=== PATIENT | female | born 1980 | race Caucasian/White ===

== ENCOUNTER 2017-08-19 09:20 | Emergency (ER) | payer BC ==
[2017-08-19 11:13] VITALS: BP 108/70
--- NOTE | 2017-08-27 15:04 | ED ---
Throat Pain/Nasal Congestion - HPI Summary HPI Summary: 36 yr old with right eye irritation for a day. No contact lens use. Increased watering and crusty. No other complaints. - History of Current Complaint Chief Complaint: UCEye Time Seen by Provider: 08/19/17 10:40 - Allergies/Home Medications Allergies/Adverse Reactions: Allergies Allergy/AdvReac Type Severity Reaction Status Date / Time No Known Allergies Allergy Verified 08/27/17 14:18 Home Medications: Home Medications Acetaminophen/Diphenhydramine [Tylenol Pm Ex-Strength Caplet] 1 each PO BEDTIME 08/19/17 [History Confirmed 08/19/17] PMH/Surg Hx/FS Hx/Imm Hx Infectious Disease History: No Infectious Disease History: Denies: Traveled Outside the [place] in Last 30 Days - Social History Alcohol Use: None Substance Use Type: Reports: None Smoking Status (MU): Never Smoked Tobacco Review of Systems Constitutional: Negative Positive: Drainage, Other - irritation All Other Systems Reviewed And Are Negative: Yes Physical Exam Triage Information Reviewed: Yes Vital Signs On Initial Exam: Initial Vitals Temp Pulse Resp BP Pulse Ox 98.6 F 63 16 108/70 100 08/19/17 11:08 08/19/17 11:08 08/19/17 11:08 08/19/17 11:08 08/19/17 11:08 Vital Signs Reviewed: Yes Appearance: Positive: Well-Appearing, No Pain Distress, Well-Nourished Skin: Positive: Warm, Skin Color Reflects Adequate Perfusion Eyes: Positive: EOMI, JEREMY, Conjunctiva Inflammed - right greater than left ENT: Positive: Normal ENT inspection Respiratory/Lung Sounds: Positive: Clear to Auscultation Cardiovascular: Positive: RRR Abdomen Description: Negative: Distended Musculoskeletal: Positive: Normal, Strength/ROM Intact Neurological: Positive: Sensory/Motor Intact, Alert, Oriented to Person Place, Time, CN Intact II-III Psychiatric: Positive: Normal - Magno Coma Scale Best Eye Response: 4 - Spontaneous Best Motor Response: 6 - Obeys Commands Best Verbal Response: 5 - Oriented Coma Scale Total: 15 Diagnostics - Vital Signs Vital Signs Temp Pulse Resp BP Pulse Ox 08/19/17 11:08 98.6 F 63 16 108/70 100 - Laboratory Lab Statement: Any lab studies that have been ordered have been reviewed, and results considered in the medical decision making process. EENT Course/Dx - Course Course Of Treatment: 36 yr old female with conjunctivitis. Sulfa drops. FU PMD - Diagnoses Provider Diagnoses: Conjunctivitis Discharge - Discharge Plan Condition: Good Disposition: HOME Prescriptions: Sulfacetamide 10 % OPTH.APURVA* [Sulamyd 10% Opth*] 1 drop BOTH EYES Q4H #1 btl Patient Education Materials: Conjunctivitis (ED) Forms: *Work Release Referrals: [facility] [place] [facility] [Outside] - 2 Days No Primary Care Phys,NOPCP [Primary Care Provider] -
== END 2017-08-19 11:15 | disposition home or self-care (01) ==
LOC: UCCORT 09:20
DX: H10.31 Unspecified acute conjunctivitis, right eye (principal)
CPT/HCPCS: 99202; G0463

== ENCOUNTER 2017-08-27 13:48 | Emergency (ER) | payer BC ==
[2017-08-27 14:27] VITALS: BP 112/67
--- NOTE | 2017-08-27 15:20 | ED ---
Throat Pain/Nasal Congestion - HPI Summary HPI Summary: 36 yr female with the complaint of Right eye irritation, drainage. The patient was seen on August 19, for same complaint, put on sulfa eye drops. She states she got better, but then it came back yesterday. The patient states she did use the drops for seven days and it cleared up but then since yesterday it came back. No eye pain, no drainage, and no contact lenses. No eyelid swelling. - History of Current Complaint Chief Complaint: UCEye Time Seen by Provider: 08/27/17 15:05 - Allergies/Home Medications Allergies/Adverse Reactions: Allergies Allergy/AdvReac Type Severity Reaction Status Date / Time No Known Allergies Allergy Verified 08/27/17 14:18 PMH/Surg Hx/FS Hx/Imm Hx Infectious Disease History: No Infectious Disease History: Denies: Traveled Outside the [place] in Last 30 Days - Family History Known Family History: Positive: None - Social History Occupation: Employed Full-time Alcohol Use: None Substance Use Type: Reports: None Smoking Status (MU): Never Smoked Tobacco Review of Systems Constitutional: Negative Positive: Drainage, Erythema. Negative: Photophobia All Other Systems Reviewed And Are Negative: Yes Physical Exam Triage Information Reviewed: Yes Vital Signs On Initial Exam: Initial Vitals Temp Pulse Resp BP Pulse Ox 97.6 F 51 18 112/67 100 08/27/17 14:20 08/27/17 14:20 08/27/17 14:20 08/27/17 14:20 08/27/17 14:20 Vital Signs Reviewed: Yes Appearance: Positive: Well-Appearing, No Pain Distress Skin: Positive: Warm, Skin Color Reflects Adequate Perfusion Head/Face: Positive: Normal Head/Face Inspection Eyes: Positive: EOMI, JEREMY, Conjunctiva Inflammed - right greater than the left eye ENT: Positive: Normal ENT inspection Neck: Positive: Nontender Respiratory/Lung Sounds: Positive: Other - normal effort Abdomen Description: Negative: Distended Musculoskeletal: Positive: Strength/ROM Intact Neurological: Positive: Sensory/Motor Intact, Alert, Oriented to Person Place, Time, CN Intact II-III, Normal Gait Psychiatric: Positive: Normal - Ryder Coma Scale Best Eye Response: 4 - Spontaneous Best Motor Response: 6 - Obeys Commands Best Verbal Response: 5 - Oriented Coma Scale Total: 15 Diagnostics - Vital Signs Vital Signs Temp Pulse Resp BP Pulse Ox 08/27/17 14:20 97.6 F 51 18 112/67 100 - Laboratory Lab Statement: Any lab studies that have been ordered have been reviewed, and results considered in the medical decision making process. EENT Course/Dx - Course Course Of Treatment: 36 yr old female with conjunctivitis, will change to erythromycin eye ointment, and culture sent. - Diagnoses Provider Diagnoses: Conjunctivitis Discharge - Discharge Plan Condition: Good Disposition: HOME Prescriptions: Erythromycin OPTH OINT* [Erythromycin 0.5% OPTH OINT*] 1 applic BOTH EYES TID # 1 tube Patient Education Materials: Conjunctivitis (ED) Referrals: No Primary Care Phys,NOPCP [Primary Care Provider] - Denzel Sagastume MD [Medical Doctor] - [facility] [place] [facility] [Outside] Additional Instructions: If your eye is not better by tomorrow you should go to [facility] in [place] to see the Eye surgeons. Located in: [facility] Address: [address] [place] [address]
== END 2017-08-27 15:29 | disposition home or self-care (01) ==
LOC: UCCORT 13:48
DX: H10.9 Unspecified conjunctivitis (principal)
CPT/HCPCS: 87070; 87205; 99212; G0463